=== PATIENT | male | born 1955 | race Two or more races ===

== ENCOUNTER 2017-05-03 11:37 | Emergency (ER) | payer OTHER ==
[~2017-05-03] VITALS: Ht 162.6 cm; Wt 77.1 kg
[2017-05-03 14:13] LABS: Basophils # (auto) 0 uL; Basophils % (auto) 0.4 % (0.0-2.0); CONDITION Y; Eosinophils # (auto) 0 uL; Hematocrit 41.8 % (41.0-53.0); Hemoglobin 14.2 g/dL (13.5-17.5); Lymphocytes # (auto) 1.5 uL; Lymphocytes % (auto) 23.3 % (10.0-50.0); Mean Corpuscular Hemoglobin 31.4 pg (28.0-32.0); Mean Corpuscular Hgb Conc. 33.9 g/dL (32.0-36.0); Mean Corpuscular Volume 92.8 fL (80.0-100.0); Monocytes # (auto) 0.5 uL; Monocytes % (auto) 7.5 % (0.0-12.0); Neutrophils # (auto) 4.4 uL; Neutrophils % (auto) 68.8 % (37.0-80.0); Platelet Count (auto) 270 10^3/uL (140-450); Red Cell Distribution Width 15.4 % (11.6-16.0); White Blood Cell 6.4 10^3/uL (4.4-10.8)
[2017-05-03 14:49] LABS: Albumin 4.1 g/dL (3.4-5.0); BUN/Creatinine Ratio 14.7; Bilirubin, Total 0.5 mg/dL (0.2-1.0); Calcium 9.2 mg/dL (8.5-10.1); Magnesium 2.4 mg/dL (1.6-2.6); Potassium 3.6 mmol/L (3.5-5.1); Total Protein 7.7 g/dL (6.4-8.2)
[2017-05-03] MEDS ORDERED: cloNIDine HCL 0.1 MG TAB PO ONE (19:15)
[2017-05-03 20:20] VITALS: BP 141/101
[2017-05-03 20:48] LABS: Urine Bilirubin Negative (Negative); Urine Blood Negative /uL (Negative); Urine Color Yellow (Yellow); Urine Glucose Normal (Normal); Urine Ketone 1+ (Negative); Urine Nitrite Negative (Negative); Urine RBC 1 /hpf (0 - 3); Urine Squamous Epithelial Cell FEW /hpf (<5); Urine Urobilinogen Normal (Negative); Urine pH 6.5 (5.0-8.0)
== END 2017-05-03 21:38 | disposition home or self-care (01) ==
LOC: ER 11:37
DX: F41.9 Anxiety disorder, unspecified (principal); F32.9 Major depressive disorder, single episode, unspecified
CPT/HCPCS: 36415; 80053; 81001; 83735; 84484; 85025; 93005

== ENCOUNTER 2018-02-05 12:46 | Emergency (ER) | payer OTHER ==
[~2018-02-05] VITALS: Ht 160 cm; Wt 66.2 kg
[2018-02-05 14:14] LABS: Basophils # (auto) 0 uL; Basophils % (auto) 0.2 % (0.0-2.0); Eosinophils # (auto) 0 uL; Hematocrit 38.4 % (41.0-53.0); Hemoglobin 12.9 g/dL (13.5-17.5); Lymphocytes # (auto) 1.3 uL; Lymphocytes % (auto) 30.6 % (10.0-50.0); Mean Corpuscular Hemoglobin 31.8 pg (28.0-32.0); Mean Corpuscular Hgb Conc. 33.6 g/dL (32.0-36.0); Mean Corpuscular Volume 94.6 fL (80.0-100.0); Monocytes # (auto) 0.4 uL; Monocytes % (auto) 10.4 % (0.0-12.0); Neutrophils # (auto) 2.5 uL; Neutrophils % (auto) 58.8 % (37.0-80.0); Nucleated Red Blood Cells % 0.1 %; Platelet Count (auto) 221 10^3/uL (140-450); Red Blood Cells 4.06 10^6/uL (4.5-5.90); Red Cell Distribution Width 13.8 % (11.8-14.3); White Blood Cell 4.2 10^3/uL (4.4-10.8)
[2018-02-05 14:30] LABS: Urine Bacteria FEW /hpf (None Seen); Urine Blood Negative /uL (Negative); Urine Mucus FEW (None Seen); Urine Specific Gravity 1.019 (1.001-1.035); Urine WBC 26 /hpf (0 - 3)
[2018-02-05 14:43] LABS: Albumin 3.8 g/dL (3.4-5.0); BUN/Creatinine Ratio 14.3; Bilirubin, Total 0.3 mg/dL (0.2-1.0); Calcium 8.7 mg/dL (8.5-10.1); Potassium 3.9 mmol/L (3.5-5.1); Total Protein 6.6 g/dL (6.4-8.2)
[2018-02-05 14:45] LABS: Amylase 69 U/L (25-115); Lipase 314 U/L (73-393)
[2018-02-05 15:58] VITALS: BP 163/91
== END 2018-02-05 16:13 | disposition home or self-care (01) ==
LOC: ER 12:46
DX: N39.0 Urinary tract infection, site not specified (principal); I10 Essential (primary) hypertension
CPT/HCPCS: 36415; 74176; 80053; 81001; 82150; 83690; 85025; 93005

== ENCOUNTER 2018-08-07 09:10 | Emergency (ER) | payer OTHER ==
[~2018-08-07] VITALS: Ht 160 cm; Wt 73.0 kg
[2018-08-07] MEDS ORDERED: LORazepam 2MG/ML-1ML VIAL IV ONE (09:30)
[2018-08-07] MEDS ORDERED: SODIUM CHLORIDE 0.9% 1,000 ML IV ONE (09:30)
[2018-08-07] MEDS ORDERED: ONDANSETRON HCL 4 MG/2 ML VIAL IV ONE (09:45)
[2018-08-07 10:31] LABS: Basophils # (auto) 0 uL; Basophils % (auto) 0.2 % (0.0-2.0); Eosinophils # (auto) 0 uL; Hematocrit 40.8 % (36.0-46.0); Lymphocytes # (auto) 0.5 uL; Lymphocytes % (auto) 7.5 % (10.0-50.0); Mean Corpuscular Hemoglobin 32.8 pg (28.0-32.0); Mean Corpuscular Hgb Conc. 34.4 g/dL (32.0-36.0); Mean Corpuscular Volume 95.4 fL (80.0-100.0); Monocytes # (auto) 0.4 uL; Monocytes % (auto) 5.9 % (0.0-12.0); Neutrophils % (auto) 86.4 % (37.0-80.0); Platelet Count (auto) 215 10^3/uL (140-450); Red Blood Cells 4.28 10^6/uL (4.0-5.20); Red Cell Distribution Width 13.2 % (11.8-14.3); White Blood Cell 6.9 10^3/uL (4.4-10.8)
[2018-08-07 10:48] LABS: Alanine Aminotransferase 32 U/L (13-56); Albumin 3.6 g/dL (3.4-5.0); Anion Gap 10 (5-15); Aspartate Aminotransferase 22 U/L (15-37); BUN/Creatinine Ratio 12.7; Blood Urea Nitrogen 10 mg/dL (7-18); Calcium 8.5 mg/dL (8.5-10.1); Carbon Dioxide 24 mmol/L (21-32); Chloride 109 mmol/L (98-107); GFR African American 95 mL/min; GFR Non-African American 79 mL/min; Glucose 130 mg/dL (74-106); Magnesium 1.8 mg/dL (1.6-2.6); Potassium 3.4 mmol/L (3.5-5.1); Sodium 143 mmol/L (136-145)
[2018-08-07 10:53] LABS: Alkaline Phosphatase 114 U/L (45-117); Bilirubin, Total 0.4 mg/dL (0.2-1.0); Total Protein 7.4 g/dL (6.4-8.2)
[2018-08-07] MEDS ORDERED: POTASSIUM EFFERVESENT TAB 25 MEQ PO ONE (12:00)
[2018-08-07] MEDS ORDERED: LABETALOL HCL 5 MG/ML ML 20ML VIAL IV ONE (12:15)
[2018-08-07 13:33] VITALS: BP 162/90
== END 2018-08-07 13:34 | disposition home or self-care (01) ==
LOC: EDSEX 09:10 → EDBD 09:10 → EDSEX 09:13 → ER 09:13
DX: F12.90 Cannabis use, unspecified, uncomplicated (principal); R11.2 Nausea with vomiting, unspecified
CPT/HCPCS: 36415; 71046; 74176; 80053; 83735; 84484; 85025; 96361; 96374; 96375; 99285; J2060; J2405; 93005

== ENCOUNTER 2022-04-16 11:16 | Emergency (ER) | payer MEDICARE, MEDICAID ==
[~2022-04-16] VITALS: Ht 162.6 cm; Wt 68.0 kg
[2022-04-16] MEDS ORDERED: HYDROcodone-ACET 10/325MG TAB PO ONE (11:45)
[2022-04-16] MEDS ORDERED: ONDANSETRON ODT 4 MG TAB PO ONE (11:45)
[2022-04-16] MEDS ORDERED: LORazepam 0.5 MG TAB PO ONE (11:45)
[2022-04-16] MEDS ORDERED: ONDANSETRON HCL 4 MG/2 ML VIAL ONE (12:46)
[2022-04-16] MEDS ORDERED: ONDANSETRON HCL 4 MG/2 ML VIAL IV ONE (13:00)
[2022-04-16 13:12] VITALS: BP 174/95
[2022-04-16] MEDS ORDERED: ONDA-144 PO (16:37)
== END 2022-04-16 17:25 | disposition home or self-care (01) ==
LOC: ER 11:16 → EDSEX 11:16 → EDBD 11:16 → ER 17:25
DX: F41.9 Anxiety disorder, unspecified (principal); G89.4 Chronic pain syndrome; I10 Essential (primary) hypertension; F32.9 Major depressive disorder, single episode, unspecified; Z76.0 Encounter for issue of repeat prescription
CPT/HCPCS: 96374; 99283; J2405

== ENCOUNTER → 2025-01-21 | Outpatient (CLI) | payer OTHER, MEDICAID ==
[~2025-01-21] MED LIST: ONDA-144 PO
== END | disposition home or self-care (01) ==
LOC: LAB 13:06
PROVIDERS: ATTEND Internal Medicine
DX: N39.0 Urinary tract infection, site not specified (principal)
CPT/HCPCS: 87086

== ENCOUNTER 2025-01-25 17:34 | Emergency (ER) | payer OTHER, MEDICAID ==
[~2025-01-25] VITALS: Ht 160 cm; Wt 77.1 kg
[2025-01-25 17:54] VITALS: BP 148/70; PULSE 83; RESP 18; TEMP 97.9; O2SAT 95
== END 2025-01-25 17:54 | disposition left against medical advice (07) ==
LOC: ER 17:38
DX: I10 Essential (primary) hypertension (principal); Z53.21 Procedure and treatment not carried out due to patient leaving prior to being seen by health care provider

== ENCOUNTER → 2025-01-30 | Outpatient (CLI) | payer OTHER, MEDICAID ==
[2025-01-30 12:16] LABS: Basophils # (auto) 0 10 ^3/uL (0-0.2); Basophils % (auto) 0.2 % (0.0-2.0); Eosinophils # (auto) 0 10 ^3/uL (0-0.8); Eosinophils % (auto) 0.1 % (0.0-7.0); Hematocrit 38.8 % (36.0-46.0); Hemoglobin 13.4 g/dL (12.2-16.2); Lymphocytes # (auto) 1.1 10 ^3/uL (0.4-5.4); Lymphocytes % (auto) 26.8 % (10.0-50.0); Mean Corpuscular Hemoglobin 32.5 pg (28.0-32.0); Mean Corpuscular Hgb Conc. 34.4 g/dL (32.0-36.0); Mean Corpuscular Volume 94.4 fL (80.0-100.0); Monocytes # (auto) 0.4 10 ^3/uL (0-1.3); Monocytes % (auto) 11.1 % (0.0-12.0); Neutrophils # (auto) 2.5 10 ^3/uL (1.6-8.6); Neutrophils % (auto) 61.8 % (37.0-80.0); Nucleated Red Blood Cells % 0.1 %; Platelet Count (auto) 206 10^3/uL (140-450); Red Blood Cells 4.11 10^6/uL (4.0-5.20); Red Cell Distribution Width 12.8 % (11.8-14.3); Urine Bacteria FEW /hpf (None Seen); Urine Blood Negative /uL (Negative); Urine Clarity Clear (Clear); Urine Color Light-Yellow (Yellow); Urine Mucus FEW (None Seen); Urine Protein, UAD Negative (Negative); Urine Specific Gravity 1.019 (1.001-1.035); Urine Squamous Epithelial Cell FEW /hpf (<5); Urine Urobilinogen Normal (Negative); Urine WBC 4 /HPF (0-5)
[2025-01-30 12:53] LABS: Albumin 4.7 g/dL (3.2-4.8); Alkaline Phosphatase 111 U/L (46-116); Anion Gap 6 (5-15); Aspartate Aminotransferase 15 U/L (13-40); BUN/Creatinine Ratio 14.8 (10.0-20.0); Blood Urea Nitrogen 12 mg/dL (9-23); Carbon Dioxide 28 mmol/L (20-31); Cholesterol 163 mg/dL (< 200); Glucose 105 mg/dL (74-106); HDL Cholesterol 56 mg/dL (40-59); LDL Cholesterol 95 mg/dL (< 100); Potassium 4.3 mmol/L (3.5-5.1); Sodium 141 mmol/L (136-145); Total Protein 7.2 g/dL (5.7-8.2); Triglycerides 83 mg/dL (< 150)
[2025-01-30 12:54] LABS: Bilirubin, Total 0.5 mg/dL (0.2-1.0)
[2025-01-30 12:56] LABS: Alanine Aminotransferase < 9 U/L (7-40); Chloride 107 mmol/L (98-107); Free T4 (Free Thyroxine) 1.23 ng/dL (0.89-1.76)
== END | disposition home or self-care (01) ==
LOC: LAB 11:38
PROVIDERS: ATTEND Internal Medicine
DX: I10 Essential (primary) hypertension (principal)
CPT/HCPCS: 36415; 80053; 80061; 81001; 82274; 82306; 82607; 83036; 84439; 84443; 85025; 87086

== ENCOUNTER → 2025-02-03 | Outpatient (CLI) | payer OTHER, MEDICAID ==
[2025-02-03 10:37] LABS: Urine Bacteria FEW /hpf (None Seen); Urine Blood Negative /uL (Negative); Urine Clarity Clear (Clear); Urine Color Light-Yellow (Yellow); Urine Protein, UAD Negative (Negative); Urine Specific Gravity 1.018 (1.001-1.035); Urine Squamous Epithelial Cell FEW /hpf (<5); Urine Urobilinogen Normal (Negative); Urine WBC < 1 /HPF (0-5)
== END | disposition home or self-care (01) ==
LOC: LAB 09:05
PROVIDERS: ATTEND Internal Medicine
DX: N39.0 Urinary tract infection, site not specified (principal)
CPT/HCPCS: 81001; 87086

== ENCOUNTER 2025-02-05 11:27 | Emergency (ER) | payer OTHER, MEDICAID ==
[~2025-02-05] VITALS: Ht 160 cm; Wt 75.2 kg
--- NOTE | 2025-02-05 11:49 | ED.PDOC ---
History of Present Illness HPI Comments 69-year-old female with PMHx HTN, Depression, Anxiety presents with a chief complaint of urinary frequency, nausea, and vomiting. Patient states that she has been having to go to the bathroom to urinate very often. Patient also mentions that she is having nausea with intermittent episodes of vomiting. Patient is not actively vomiting at this time. Patient endorses marijuana use, but stopped taking it x 1 week ago. No other symptoms or modifying factors present at this time. Chief Complaint: Nausea/Vomiting Time Seen by MD: 11:42 Primary Care Provider: NIKKI Salgado Notes: Medications, Allergies Allergies: Coded Allergies: No Known Drug Allergy (Verified Allergy, Unknown, 02/05/18) Home Meds Active Scripts Ondansetron (Zofran) 4 Mg Tab, 4 MG PO QID, #20 MG 0 Refills Prov:RIN LEÓN MD 04/16/22 Information Source: Patient Mode of Arrival: Ambulatory Severity: Moderate Timing: Days Duration: Since onset Prehospital treatment: None Past Medical History PAST MEDICAL HISTORY: Anxiety, Depression, HTN Surgical History: Appendectomy, , Hysterectomy Surgical History (Other): NECK, TMJ, Left FOOT 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 Family History Family History: Reviewed,noncontributory to illness Social History Smoker: Non-Smoker Alcohol: Denies ETOH Use Drugs: Marijuana Lives In: Home Constitutional: denies: chills, diaphoresis, fatigue, fever, malaise, sweats, weakness, others EENTM: denies: blurred vision, double vision, ear bleeding, ear discharge, ear drainage, ear pain, ear ringing, eye pain, eye redness, hearing loss, mouth pain, mouth swelling, nasal discharge, nose bleeding, nose congestion, nose pain, photophobia, tearing, throat pain, throat swelling, voice changes, others Respiratory: denies: cough, hemoptysis, orthopnea, SOB at rest, shortness of breath, SOB with excertion, stridor, wheezing, others Cardiovascular: denies: chest pain, dizzy spells, diaphoresis, Dyspnea on exertion, edema, irregular heart beat, left arm pain, lightheadedness, palpitations, PND, syncope, others Gastrointestinal: reports: nausea, vomiting; denies: abdomen distended, abdominal pain, blood streaked bowels, constipated, diarrhea, dysphagia, difficulty swallowing, hematemesis, melena, poor appetite, poor fluid intake, rectal bleeding, rectal pain, others Genitourinary: reports: frequency; denies: abnormal vagina bleeding, burning, dyspareunia, dysuria, flank pain, hematuria, incontinence, pain, , vagina discharge, urgency, others Neurological: denies: dizziness, fainting, headache, left sided numbness, left sided weakness, numbness, paresthesia, pre-existing deficit, right sided numbness, right sided weakness, seizure, speech problems, tingling, tremors, weakness, others Musculoskeletal: denies: back pain, gout, joint pain, joint swelling, muscle pain, muscle stiffness, neck pain, others Integumetry: denies: bruises, change in color, change in hair/nails, dryness, laceration, lesions, lumps, rash, wounds, others Allergic/Immunocompromised: denies: Difficulty Healing, Frequent Infections, Hives, Itching, others Hematologic/Lymphatic: denies: anemia, blood clots, easy bleeding, easy bruising, swollen glands, others Endocrine: denies: excessive hunger, excessive sweating, excessive thirst, excessive urination, flushing, intolerance to cold, intolerance to heat, unexplained weight gain, unexplained weight loss, others Psychiatric: denies: anxiety, bipolar disorder, depression, hopeless, panic disorder, schizophrenia, sleepless, suicidal, others All Other Systems: Reviewed and Negative Physical Exam General Appearance: Mild Distress HEENT: Normal ENT Inspection, Pharynx Normal, TMs Normal Neck: Full Range of Motion, Non-Tender, Normal, Normal Inspection Respiratory: Chest Non-Tender, Lungs Clear, No Accessory Muscle Use, No Respiratory Distress, Normal Breath Sounds Cardiovascular: No Edema, No JVD, No Murmur, No Gallop, Normal Peripheral Pulses, Regular Rate/Rhythm Breast Exam: Deferred Gastrointestinal: No Organomegaly, Non Tender, No Pulsatile Mass, Normal Bowel Sounds, Soft Genitalia: Deferred Pelvic: Deferred Rectal: Deferred Extremities: No calf tenderness, Normal capillary refill, Normal inspection, Normal range of motion, Non-tender, No pedal edema Musculoskeletal : Apperance: Normal Neurologic: Alert, court registry officer II-XII nml as Tested, No Motor Deficits, Normal Affect, Normal Mood, No Sensory Deficits Cerebellar Function: Normal Reflexes: Normal Skin: Dry, Normal Color, Warm Lymphatic: No Adenopathy Was a procedure done? Was a procedure done?: No Differential Dx Considerations may include: Cannabinoid emesis, electrolyte imbalance, UTI X-Ray, Labs, Meds, VS Vital Signs Date Time Temp Pulse Resp B/P (MAP) Pulse Ox O2 Delivery O2 Flow Rate FiO2 02/05/25 12:42 97.6 72 18 140/74 (96) 96 97.6 02/05/25 12:42 72 18 96 Room Air* 0 21 02/05/25 11:37 99.3 82 18 155/79 (104) 96 99.3 Lab Test 02/05/25 12:50 Range/Units White Blood Count 4.9 4.4-10.8 10^3/uL Red Blood Count 4.34 4.0-5.20 10^6/uL Hemoglobin 14.0 12.2-16.2 g/dL Hematocrit 41.1 36.0-46.0 % Mean Corpuscular Volume 94.6 80.0-100.0 fL Mean Corpuscular Hemoglobin 32.3 H 28.0-32.0 pg Mean Corpuscular Hemoglobin Concent 34.1 32.0-36.0 g/dL Red Cell Distribution Width 13.4 11.8-14.3 % Platelet Count 230 140-450 10^3/uL Mean Platelet Volume 10.3 6.9-10.8 fL Neutrophils (%) (Auto) 58.4 37.0-80.0 % Lymphocytes (%) (Auto) 28.9 10.0-50.0 % Monocytes (%) (Auto) 12.2 H 0.0-12.0 % Eosinophils (%) (Auto) 0.1 0.0-7.0 % Basophils (%) (Auto) 0.4 0.0-2.0 % Neutrophils # (Auto) 2.9 1.6-8.6 10 ^3/uL Lymphocytes # (Auto) 1.4 0.4-5.4 10 ^3/uL Monocytes # (Auto) 0.6 0-1.3 10 ^3/uL Eosinophils # (Auto) 0 0-0.8 10 ^3/uL Basophils # (Auto) 0 0-0.2 10 ^3/uL Nucleated Red Blood Cells 0.1 % Sodium Level 140 136-145 mmol/L Potassium Level 3.9 3.5-5.1 mmol/L Chloride Level 108 H 98-107 mmol/L Carbon Dioxide Level 27 20-31 mmol/L Anion Gap 5 5-15 Blood Urea Nitrogen 12 9-23 mg/dL Creatinine 0.73 0.550-1.02 mg/dL Glomerular Filtration Rate Calc 90 >90 mL/min BUN/Creatinine Ratio 16.4 10.0-20.0 Serum Glucose 98 74-106 mg/dL Calcium Level 10.0 8.7-10.4 mg/dL Total Bilirubin 0.5 0.2-1.0 mg/dL Aspartate Amino Transferase (AST) 17 13-40 U/L Alanine Aminotransferase (ALT) 15 7-40 U/L Alkaline Phosphatase 107 46-116 U/L Total Protein 7.7 5.7-8.2 g/dL Albumin 5.0 H 3.2-4.8 g/dL Gallbladder US Impression: No evidence of acute abnormality. The patient's CBC is within normal limits The chemistry panel is within normal limits The patient was being discharged and will follow up with the primary care doctor The patient will return to the emergency department's the condition worsens. The patient was given Zofran and Protonix Time of 1ST Reevaluation: 12:12 Reevaluation 1ST: Unchanged Patient Education/Counseling: Diagnosis, Treatment, Prognosis, Need For Follow Up Family Education/Counseling: No Family Present Departure 1 Departure Time of Disposition: 14:17 Impression: Primary Impression: Vomiting Qualified Codes: R11.14 - Bilious vomiting Additional Impression: Cannabinoid hyperemesis syndrome Disposition: 01 HOME / SELF CARE / HOMELESS Condition: Fair Discharged With: Self Critical Care Note Critical Care Time?: No Stability Stability form required: No Heart Score Heart Score: Heart Score Response (Comments) Value History N/A 0 EKG N/A 0 Age N/A 0 Risk Factors N/A 0 Troponin N/A 0 Total 0 I personally scribed for CARLOS ALBERTO JUAREZ MD ([email or web address]) on 02/05/25 at 11:49. Electronically submitted by Momo Amezquita ([email or web address]). I personally scribed for CARLOS ALBERTO JUAREZ MD ([email or web address]) on 02/05/25 at 13:22. Electronically submitted by Momo Amezquita ([email or web address]). CARLOS ALBERTO JUAREZ MD Feb 05, 2025 11:49
[2025-02-05 12:42] VITALS: PULSE 72; RESP 18; O2SAT 96
--- NOTE | 2025-02-05 12:49 | DVH ---
EXAM: US GALLBLADDER INDICATION: pain TECHNIQUE: Multiple real-time sonographic images were obtained of the right upper quadrant. COMPARISON: None FINDINGS: The liver demonstrates homogenous echotexture without focal mass lesions. The liver measure s 15.1 cm. There is hepatopedal color doppler flow in the main portal vein. There is no intrahepatic biliary ductal dilatation. The gallbladder is without evidence of stone or sludge. The gallbladder wall measures 0.2 cm. The common bile duct measures 0.4 cm. There is a negative sonographic Clark's sign. The right kidney measures 9.8 cm. The right kidney is normal in contour, size, and shape. The echo genicity is normal. There is no hydronephrosis. The pancreas is not well visualized due to overlying bowel gas. Visualized portions of the aorta and inferior vena cava are unremarkable. No evidence of ascites. IMPRESSION: 1. No evidence of acute abnormality. HS:Y
[2025-02-05 13:25] LABS: Basophils # (auto) 0 10 ^3/uL (0-0.2); Basophils % (auto) 0.4 % (0.0-2.0); Eosinophils # (auto) 0 10 ^3/uL (0-0.8); Eosinophils % (auto) 0.1 % (0.0-7.0); Hematocrit 41.1 % (36.0-46.0); Lymphocytes # (auto) 1.4 10 ^3/uL (0.4-5.4); Lymphocytes % (auto) 28.9 % (10.0-50.0); Mean Corpuscular Hemoglobin 32.3 pg (28.0-32.0); Mean Corpuscular Hgb Conc. 34.1 g/dL (32.0-36.0); Mean Corpuscular Volume 94.6 fL (80.0-100.0); Monocytes # (auto) 0.6 10 ^3/uL (0-1.3); Monocytes % (auto) 12.2 % (0.0-12.0); Neutrophils # (auto) 2.9 10 ^3/uL (1.6-8.6); Neutrophils % (auto) 58.4 % (37.0-80.0); Nucleated Red Blood Cells % 0.1 %; Platelet Count (auto) 230 10^3/uL (140-450); Red Blood Cells 4.34 10^6/uL (4.0-5.20); Red Cell Distribution Width 13.4 % (11.8-14.3); White Blood Cell 4.9 10^3/uL (4.4-10.8)
[2025-02-05 13:31] LABS: Alanine Aminotransferase 15 U/L (7-40); Alkaline Phosphatase 107 U/L (46-116); Anion Gap 5 (5-15); Aspartate Aminotransferase 17 U/L (13-40); BUN/Creatinine Ratio 16.4 (10.0-20.0); Bilirubin, Total 0.5 mg/dL (0.2-1.0); Blood Urea Nitrogen 12 mg/dL (9-23); Carbon Dioxide 27 mmol/L (20-31); Glucose 98 mg/dL (74-106); Potassium 3.9 mmol/L (3.5-5.1); Sodium 140 mmol/L (136-145); Total Protein 7.7 g/dL (5.7-8.2)
[2025-02-05 13:36] LABS: Chloride 108 mmol/L (98-107)
[2025-02-05] MEDS ORDERED: ZOFR4T PO (14:19)
[2025-02-05] MEDS ORDERED: PANT40TA2 PO (14:19)
[2025-02-05 14:29] VITALS: BP 149/86; PULSE 83; RESP 16; TEMP 98.7; O2SAT 95
== END 2025-02-05 14:39 | disposition home or self-care (01) ==
LOC: ER 11:31
DX: R11.2 Nausea with vomiting, unspecified (principal); F12.90 Cannabis use, unspecified, uncomplicated; I10 Essential (primary) hypertension; F41.9 Anxiety disorder, unspecified; F32.9 Major depressive disorder, single episode, unspecified; Z90.710 Acquired absence of both cervix and uterus; Z90.49 Acquired absence of other specified parts of digestive tract
CPT/HCPCS: 36415; 76705; 80053; 85025

== ENCOUNTER 2025-03-18 12:46 | Emergency (ER) | payer OTHER, MEDICAID ==
[~2025-03-18] VITALS: Ht 160 cm; Wt 71.7 kg
[~2025-03-18 12:46] MED LIST changes: +PANT40TA2 PO; +ZOFR4T PO
[2025-03-18 13:48] LABS: Urine Bacteria FEW /hpf (None Seen); Urine Blood 3+ /uL (Negative); Urine Budding Yeast MODERATE /hpf (None Seen); Urine Clarity Ex.Turbid (Clear); Urine Color Light-Brown (Yellow); Urine Mucus FEW (None Seen); Urine Protein, UAD 1+ (Negative); Urine Specific Gravity 1.014 (1.001-1.035); Urine Squamous Epithelial Cell FEW /hpf (<5); Urine Urobilinogen Normal (Negative); Urine WBC 3317 /HPF (0-5)
[2025-03-18] MEDS ORDERED: PHEN-1045 PO (14:45)
[2025-03-18] MEDS ORDERED: CEPH500T PO (14:45)
--- NOTE | 2025-03-18 14:47 | ED.PDOC ---
General HPI Comments 69 y/o F presents with 2 day history of dysuria and increased urinary urgency and frequency with hematuria onset today. She reports on history of previous multiple bladder infections in the past and is currently followed by Dr. Bipin Ortiz for frequent UTIs, and has been recommended for cystoscopy. She denies having any flank or abdominal pain, nausea, vomiting, fever, chills, or other associated symptoms. Reports no modifying factors. Chief Complaint: Urinary Time Seen by MD: 14:20 Primary Care Provider: MARIA VICTORIA Salgado notes: Nurses Notes, Medications, Allergies Allergies: Coded Allergies: No Known Drug Allergy (Verified Allergy, Unknown, 02/05/18) Home Meds Active Scripts Phenazopyridine HCl (Phenazopyridine Hydrochol) 200 Mg Tab, 200 MG PO TID PRN, #9 TAB prn urinary pain Prov:HENRY GARCIA MD 03/18/25 Cephalexin Monohydrate (Cephalexin) 500 Mg Tab, 1 TAB PO QID for 10 Days, #40 TAB Prov:HENRY GARCIA MD 03/18/25 Pantoprazole Sodium Sesquihydr (Protonix) 40 Mg Tab, 40 MG PO DAILY, #30 TAB Prov:CARLOS ALBERTO JUAREZ MD 02/05/25 Ondansetron Odt 4MG Tab (ZOFRAN PO) 4 Mg Tb, 4 MG PO Q8HP PRN for 5 Days, #15 TAB ODT TAB-DISSOLVE IN MOUTH, THEN SWALLOW Prov:CARLOS ALBERTO UJAREZ MD 02/05/25 Ondansetron (Zofran) 4 Mg Tab, 4 MG PO QID, #20 MG 0 Refills Prov:RIN LEÓN MD 04/16/22 Information Source: Patient Mode of Arrival: Ambulatory Severity: Moderate Timing: Days Past Medical History PAST MEDICAL HISTORY: Anxiety, Depression, HTN Past Medical History (Other): bladder infections Surgical History: Appendectomy, , Hysterectomy Surgical History (Other): left foot, right hand carpal tunnel, TMJ, and neck surgery 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 Moist mucous membranes.) Neck: Full Range of Motion, Normal Inspection Respiratory: Lungs Clear, No Accessory Muscle Use, No Respiratory Distress, Normal Breath Sounds Cardiovascular: No Edema, No JVD, Regular Rate/Rhythm Breast Exam: Deferred Gastrointestinal: Soft, Suprapubic, Tenderness Genitalia: Deferred Pelvic: Deferred Rectal: Deferred Extremities: Normal inspection, Normal range of motion, Non-tender, No pedal edema Neurologic: Alert (Oriented x4), Normal Affect, Normal Mood, Other (Ambulatory) Cerebellar Function: NOT DONE Reflexes: NOT DONE Skin: Dry, Normal Color, Warm Lymphatic: NOT DONE Was a procedure done? Was a procedure done?: No Differential Diagnosis Kidney stone (Female): N/A Urinary Problem (Female): Pyelonephritis, Urolithiasis, UTI, Other (viral syndrome) X-Ray, Labs, Meds, VS Vital Signs Date Time Temp Pulse Resp B/P (MAP) Pulse Ox O2 Delivery O2 Flow Rate FiO2 03/18/25 15:35 98.3 82 20 132/82 (99) 94 98.3 03/18/25 13:19 98.3 82 20 130/79 (96) 94 98.3 Lab Test 03/18/25 13:19 Range/Units Urine Color Light-brown Yellow Urine Clarity Ex.turbid Clear Urine pH 6.0 5.0-9.0 Urine Specific [place] 1.014 1.001-1.035 Urine Protein 1+ H Negative Urine Ketones Negative Negative Urine Blood 3+ H Negative /uL Urine Nitrite Negative Negative Urine Bilirubin Negative Negative Urine Urobilinogen Normal Negative mg/dL Urine Leukocyte Esterase 3+ Negative /uL Urine RBC 677 0 - 4 /hpf Urine Microscopic WBC 3317 H 0-5 /HPF Urine Squamous Epithelial Cells Few <5 /hpf Urine Bacteria Few H None Seen /hpf Urine Mucus Few None Seen Urine Yeast (Budding) Moderate None Seen /hpf Urine Glucose Normal Normal mg/dL Current Medications Medications (Trade) Dose Ordered Sig/Yandel Route Start Time Stop Time Status Last Admin Ceftriaxone Sodium/Dextrose 50 ml @ 50 mls/hr ONCE ONCE IV 03/18/25 14:45 03/18/25 15:44 DC 03/18/25 15:51 Phenazopyridine HCl (Pyridium Tablet) 200 mg ONCE ONCE PO 03/18/25 14:45 03/18/25 14:56 DC 03/18/25 15:51 Acetaminophen (Tylenol Tablet Or Capsule) 1,000 mg ONCE ONCE PO 03/18/25 14:45 03/18/25 14:56 DC 03/18/25 15:51 X-Ray, Labs, Meds, VS Comment 69-year-old female with a history of hypertension, depression, anxiety and frequent UTIs complaining of urinary frequency, dysuria and hematuria Vitals remarkable for oxygen saturation 94% on room air Exam remarkable for mild suprapubic tenderness to palpation Rhythm strip independently interpreted by me: Sinus rhythm, rate 82, no ectopy. UA under for blood, protein, leukocyte esterase, RBCs, WBCs and bacteria consistent with UTI Patient treated with the following in the ED: Rocephin 2 g IV, Pyridium 200 mg p.o., Tylenol 1 g p.o. On re-evaluation, patient states her pain has improved. Vitals were stable. Patient appears stable for discharge with close outpatient follow-up with her primary physician. Patient also advised to follow-up with Dr. Ortiz as soon as possible. Time of 1ST Reevaluation: 14:50 Reevaluation 1ST: Unchanged Time of 2ND Reevaluation: 15:55 Reevaluation 2ND: Improved Patient Education/Counseling: Diagnosis, Treatment, Need For Follow Up Family Education/Counseling: No Family Present Departure 1 Departure Time of Disposition: 15:55 Impression: Primary Impression: UTI (urinary tract infection) Qualified Codes: N39.0 - Urinary tract infection, site not specified; R31.9 - Hematuria, unspecified Disposition: 01 HOME / SELF CARE / HOMELESS Condition: Stable Additional Instructions: Follow-up with your primary doctor in 1-2 days. Follow-up with Dr. Ortiz as soon as possible. e-Prescriptions Phenazopyridine HCl (Phenazopyridine Hydrochol) 200 Mg Tab 200 MG PO TID PRN, #9 TAB prn urinary pain Prov: HENRY GARCIA MD 03/18/25 Cephalexin Monohydrate (Cephalexin) 500 Mg Tab 1 TAB PO QID for 10 Days, #40 TAB Prov: HENRY GARCIA MD 03/18/25 Discharged With: Self Critical Care Note Critical Care Time?: No Stability Stability form required: No Heart Score Heart Score: Heart Score Response (Comments) Value History N/A 0 EKG N/A 0 Age N/A 0 Risk Factors N/A 0 Troponin N/A 0 Total 0 I personally scribed for HENRY GARCIA MD ([email or web address]) on 03/18/25 at 14:47. Electronically submitted by Ignacio Fuller ([email or web address]). I personally scribed for HENRY GARCIA MD ([email or web address]) on 03/18/25 at 14:48. Electronically submitted by Ignacio Fuller ([email or web address]). I personally scribed for HENRY GARCIA MD ([email or web address]) on 03/18/25 at 15:57. Electronically submitted by Ignacio Fuller ([email or web address]). HENRY GARCIA MD March 18, 2025 14:47
[2025-03-18 15:35] VITALS: BP 132/82; PULSE 82; RESP 20; TEMP 98.3; O2SAT 94
[2025-03-18] MEDS: ACETAMINOPHEN 500 MG TAB or CAP PO ONE (15:51)
[2025-03-18] MEDS: PHENAZOPYRIDINE HCL 100 MG TAB PO ONE (15:51)
[2025-03-18] MEDS: cefTRIAXone 2GM/50ML D5W 50 ML IV ONE (15:51)
== END 2025-03-18 16:30 | disposition home or self-care (01) ==
LOC: ER 12:49
DX: N39.0 Urinary tract infection, site not specified (principal); I10 Essential (primary) hypertension; F41.9 Anxiety disorder, unspecified; F32.A Depression, unspecified; F12.90 Cannabis use, unspecified, uncomplicated; Z90.49 Acquired absence of other specified parts of digestive tract; Z90.710 Acquired absence of both cervix and uterus; Z79.899 Other long term (current) drug therapy; Z98.890 Other specified postprocedural states
CPT/HCPCS: 81001; 96365; 99284; J0696

== ENCOUNTER 2025-07-31 10:54 | Outpatient (CLI) | payer OTHER, MEDICAID ==
[~2025-07-31 10:54] MED LIST changes: +CEPH500T PO; +PHEN-1045 PO
[2025-07-31 11:10] LABS: Hematocrit 41.2 % (36.0-46.0); Hemoglobin 14.4 g/dL (12.2-16.2); Mean Corpuscular Hemoglobin 32.4 pg (28.0-32.0); Mean Corpuscular Volume 93.0 fL (80.0-100.0); Nucleated Red Blood Cells % 0.1 %
[2025-07-31 11:24] LABS: Urine Protein, UAD Negative (Negative)
[2025-07-31 11:34] LABS: Alanine Aminotransferase 18 U/L (7-40); Albumin 4.5 g/dL (3.2-4.8); Alkaline Phosphatase 99 U/L (46-116); Anion Gap 8 (5-15); BUN/Creatinine Ratio 14.6 (10.0-20.0); Bilirubin, Total 0.4 mg/dL (0.2-1.0); Blood Urea Nitrogen 13 mg/dL (9-23); Calcium 9.4 mg/dL (8.7-10.4); Carbon Dioxide 29 mmol/L (20-31); Chloride 106 mmol/L (98-107); Cholesterol 198 mg/dL (< 200); Glucose 105 mg/dL (74-106); Potassium 3.9 mmol/L (3.5-5.1); Sodium 143 mmol/L (136-145); Total Protein 7.5 g/dL (5.7-8.2); Triglycerides 107 mg/dL (< 150)
[2025-07-31 11:35] LABS: HDL Cholesterol 77 mg/dL (40-59)
== END 2025-07-31 17:00 | disposition home or self-care (01) ==
LOC: LAB 10:54
PROVIDERS: ATTEND Internal Medicine
DX: I12.9 Hypertensive chronic kidney disease with stage 1 through stage 4 chronic kidney disease, or unspecified chronic kidney disease (principal); N18.32 Chronic kidney disease, stage 3b; E78.5 Hyperlipidemia, unspecified; N39.0 Urinary tract infection, site not specified; Z13.1 Encounter for screening for diabetes mellitus; Z00.01 Encounter for general adult medical examination with abnormal findings
CPT/HCPCS: 36415; 80053; 80061; 81001; 83036; 84439; 84443; 85025

== ENCOUNTER → 2025-08-20 | Outpatient (CLI) | payer OTHER, MEDICAID | END | disposition home or self-care (01) | LOC: LAB 09:53 | PROVIDERS: ATTEND Internal Medicine | DX: N39.0 Urinary tract infection, site not specified (principal); E55.9 Vitamin D deficiency, unspecified | CPT/HCPCS: 82306; 87086 ==

== ENCOUNTER 2025-08-26 14:20 | Inpatient (IN) | payer OTHER, MEDICAID ==
[~2025-08-26] VITALS: Ht 162.6 cm
--- NOTE | 2025-08-26 14:58 | ED.PDOC ---
GI ASSESSMENT HPI Comments This is a 69 year old female presenting to the ED with chief complaint of difficulty swallowing. Patient reports that she has been experiencing intermittent episodes of difficulty swallowing foods and liquids for the past few months, but now she has been unable to eat any foods since yesterday due to feeling as if it is stuck in her throat. Patient relays that she followed up with her PCP Dr. Roca regarding this concern and was referred to GI, however, she went on a trip to [place] and could not make her appointment. Patient states she now has associated epigastric burning pain due to the food stuck in her throat. Patient denies any N/V/D, fever, chills, choking, dizziness, or hematemesis. Chief Complaint: Sore Throat Time Seen by MD: 14:55 Primary Care Provider: MARIA VICTORIA Reviewed Notes: Nurses Notes, Medications, Allergies Allergies: Coded Allergies: No Known Drug Allergy (Verified Allergy, Unknown, 02/05/18) Home Meds Active Scripts Phenazopyridine HCl (Phenazopyridine Hydrochol) 200 Mg Tab, 200 MG PO TID PRN, #9 TAB prn urinary pain Prov:HENRY GARCIA MD 03/18/25 Cephalexin Monohydrate (Cephalexin) 500 Mg Tab, 1 TAB PO QID for 10 Days, #40 TAB Prov:HENRY GARCIA MD 03/18/25 Pantoprazole Sodium Sesquihydr (Protonix) 40 Mg Tab, 40 MG PO DAILY, #30 TAB Prov:CARLOS ALBERTO JUAREZ MD 02/05/25 Ondansetron Odt 4MG Tab (ZOFRAN PO) 4 Mg Tb, 4 MG PO Q8HP PRN for 5 Days, #15 TAB ODT TAB-DISSOLVE IN MOUTH, THEN SWALLOW Prov:CARLOS ALBERTO JUAREZ MD 02/05/25 Ondansetron (Zofran) 4 Mg Tab, 4 MG PO QID, #20 MG 0 Refills Prov:RIN LEÓN MD 04/16/22 Information Source: Patient Mode of Arrival: Ambulatory Timing: Days, Months Duration: Since onset Prehospital treatment: None Quality: Burning Vomitus: None Stool: Normal Severity: Moderate Recent: None Recent Hx of: None Pain Location: Epigastric Modifying Factors: Food Associated sign and symptoms: Abdominal Pain Past Medical History PAST MEDICAL HISTORY: Anxiety, Depression, HTN Surgical History: Appendectomy, , Hysterectomy 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 Family History Family History: Reviewed,noncontributory to illness Social History Smoker: Non-Smoker Alcohol: Denies ETOH Use Drugs: Denies Drug Use Lives In: Home Constitutional: denies: chills, diaphoresis, fatigue, fever, malaise, sweats, weakness, others EENTM: reports: others (Difficulty swallowing); denies: blurred vision, double vision, ear bleeding, ear discharge, ear drainage, ear pain, ear ringing, eye pain, eye redness, hearing loss, mouth pain, mouth swelling, nasal discharge, nose bleeding, nose congestion, nose pain, photophobia, tearing, throat pain, throat swelling, voice changes Respiratory: denies: cough, hemoptysis, orthopnea, SOB at rest, shortness of breath, SOB with excertion, stridor, wheezing, others Cardiovascular: denies: chest pain, dizzy spells, diaphoresis, Dyspnea on exertion, edema, irregular heart beat, left arm pain, lightheadedness, palpi tations, PND, syncope, others Gastrointestinal: reports: abdominal pain; denies: abdomen distended, blood streaked bowels, constipated, diarrhea, dysphagia, difficulty swallowing, hematemesis, melena, nausea, poor appetite, poor fluid intake, rectal bleeding, rectal pain, vomiting, others Genitourinary: denies: abnormal vagina bleeding, burning, dyspareunia, dysuria, flank pain, frequency, hematuria, incontinence, pain, , vagina discha rge, urgency, others Neurological: denies: dizziness, fainting, headache, left sided numbness, left sided weakness, numbness, paresthesia, pre-existing deficit, right sided numbness, right sided weakness, seizure, speech problems, tingling, tremors, weakness, others Musculoskeletal: denies: back pain, gout, joint pain, joint swelling, muscle pain, muscle stiffness, neck pain, others Integumetry: denies: bruises, change in color, change in hair/nails, dryness, laceration, lesions, lumps, rash, wounds, others Allergic/Immunocompromised: denies: Difficulty Healing, Frequent Infections, Hives, Itching, others Hematologic/Lymphatic: denies: anemia, blood clots, easy bleeding, easy bruising, swollen glands, others Endocrine: denies: excessive hunger, excessive sweating, excessive thirst, excessive urination, flushing, intolerance to cold, intolerance to heat, unexplained weight gain, unexplained weight loss, others Psychiatric: denies: anxiety, bipolar disorder, depression, hopeless, panic disorder, schizophrenia, sleepless, suicidal, others All Other Systems: Reviewed and Negative Physical Exam General Appearance: Mild Distress HEENT: Normal ENT Inspection, Pharynx Normal, TMs Normal Neck: Full Range of Motion, Non-Tender, Normal, Normal Inspection Respiratory: Chest Non-Tender, Lungs Clear, No Accessory Muscle Use, No Respiratory Distress, Normal Breath Sounds Cardiovascular: No Edema, No JVD, No Murmur, No Gallop, Normal Peripheral Pulses, Regular Rate/Rhythm Breast Exam: Deferred Gastrointestinal: No Organomegaly, Non Tender, No Pulsatile Mass, Normal Bowel Sounds, Soft Genitalia: Deferred Pelvic: Deferred Rectal: Deferred Extremities: No calf tenderness, Normal capillary refill, Normal inspection, Normal range of motion, Non-tender, No pedal edema Musculoskeletal : Apperance: Normal Neurologic: Alert, iso coordinator II-XII nml as Tested, No Motor Deficits, Normal Affect, Normal Mood, No Sensory Deficits Cerebellar Function: Normal Reflexes: Normal Skin: Dry, Normal Color, Warm Lymphatic: No Adenopathy Was a procedure done? Was a procedure done?: No GI differential Dx Differential Diagnosis: Gastritis/PUD, Gastroenteritis, Other (Esophageal stricture, esophageal foreign body) X-Ray, Labs, Meds, VS Vital Signs Date Time Temp Pulse Resp B/P (MAP) Pulse Ox O2 Delivery O2 Flow Rate FiO2 08/26/25 14:25 98.7 90 16 154/84 [address] Redmond and the patient is being admitted at this time. An IV Hep-Lock is being established. The patient is being admitted and will have an EGD most likely tomorrow The patient is unable to swallow any food at this time Time of 1ST Reevaluation: 16:25 Reevaluation 1ST: Unchanged Patient Education/Counseling: Diagnosis, Treatment, Prognosis Family Education/Counseling: No Family Present SEPSIS Sepsis Screen Date sepsis recognized/suspect: Aug 26, 2025 Time Sepsis recognized/suspect: 1428 Recent Procedure: No On Antibiotic Therapy: No Respiratory Rate >20: No Heart Rate >90: No Temp<36 C (96.8 F) or >38.3 C: No SBP <90 or MAP <65 mmHG: No New Acute Mental Status Change: No Is the patient on CPAP, BIPAP,: No Vital Signs Date Time Temp Pulse Resp B/P (MAP) Pulse Ox O2 Delivery O2 Flow Rate FiO2 08/26/25 14:25 98.7 90 16 154/84 96 98.7 Departure 1 Departure Time of Disposition: 16:24 Impression: Primary Impression: Esophageal stricture Disposition: ADMITTED INPATIENT Admit to: Med Surg Condition: Fair Critical Care Note Critical Care Time?: No Stability Stability form required: Yes Unstable for transfer: ED Physician Assesment (Clinical assesment) Heart Score Heart Score: Heart Score Response (Comments) Value History N/A 0 EKG N/A 0 Age N/A 0 Risk Factors N/A 0 Troponin N/A 0 Total 0 I personally scribed for CARLOS ALBERTO JUAREZ MD ([email or web address]) on 08/26/25 at 14:58. Electronically submitted by Ray Vargas ([email or web address]). CARLOS ALBERTO JUAREZ MD Aug 26, 2025 14:58
[2025-08-26 17:32] LABS: Hematocrit 41.4 % (36.0-46.0); Hemoglobin 14.3 g/dL (12.2-16.2); Mean Corpuscular Hemoglobin 32.3 pg (28.0-32.0); Mean Corpuscular Volume 93.5 fL (80.0-100.0); Nucleated Red Blood Cells % 0.1 %
[2025-08-26 17:46] LABS: Chloride 103 mmol/L (98-107); Potassium 3.7 mmol/L (3.5-5.1); Sodium 140 mmol/L (136-145)
[2025-08-26 17:47] LABS: Anion Gap 10 (5-15); Carbon Dioxide 27 mmol/L (20-31)
[2025-08-26 17:48] LABS: Calcium 9.7 mg/dL (8.7-10.4); INR 0.99 (0.9-1.15); Partial Thromboplastin Time 28.7 SEC (24.5-34.5); Prothrombin Time 10.5 sec (9.3-11.8)
[2025-08-26 17:52] LABS: BUN/Creatinine Ratio 9.0 (10.0-20.0); Blood Urea Nitrogen 10 mg/dL (9-23); Glucose 97 mg/dL (74-106)
--- NOTE | 2025-08-26 21:02 | DVHINCON2 ---
Date of service: Aug 26, [address] Jason Reason for Consultation Oropharyngeal dysphagia History of Present Illness This is a 69 year old female presenting to the ED with chief complaint of difficulty swallowing. Patient reports that she has been experiencing intermittent episodes of difficulty swallowing foods and liquids for the past few months, but now she has been unable to eat any foods since yesterday due to feeling as if it is stuck in her throat. Patient relays that she followed up with her PCP Dr. Roca regarding this concern and was referred to GI, however, she went on a trip to [place] and could not make her appointment. Patient states she now has associated epigastric burning pain due to the food stuck in her throat. Patient denies any N/V/D, fever, chills, choking, dizziness, or hematemesis. Patient was seen in [facility]. Patient complains of ongoing symptoms and would like to get endoscopy done. Patient was able to drink liquids and she did get a cup of coffee while in the waiting room. She has not had any prior endoscopy. And Zofrjohn as an outpatient which has not helped her symptoms Past Medical History PAST MEDICAL HISTORY: Anxiety, Depression, HTN Past Surgical History Surgical History: Appendectomy, , Hysterectomy Allergies: Coded Allergies: No Known Drug Allergy (Verified Allergy, Unknown, 02/05/18) Home Meds Active Scripts Phenazopyridine HCl (Phenazopyridine Hydrochol) 200 Mg Tab, 200 MG PO TID PRN, #9 TAB prn urinary pain Prov:HENRY GARCIA MD 03/18/25 Cephalexin Monohydrate (Cephalexin) 500 Mg Tab, 1 TAB PO QID for 10 Days, #40 TAB Prov:HENRY GARCIA MD 03/18/25 Pantoprazole Sodium Sesquihydr (Protonix) 40 Mg Tab, 40 MG PO DAILY, #30 TAB Prov:CARLOS ALBERTO JASON MD 02/05/25 Ondansetron Odt 4MG Tab (ZOFRAN PO) 4 Mg Tb, 4 MG PO Q8HP PRN for 5 Days, #15 TAB ODT TAB-DISSOLVE IN MOUTH, THEN SWALLOW Prov:CARLOS ALBERTO JASON MD 02/05/25 Ondansetron (Zofran) 4 Mg Tab, 4 MG PO QID, #20 MG 0 Refills Prov:RIN LEÓN MD 04/16/22 Vital Signs Vital Signs Date Time Temp Pulse Resp B/P (MAP) Pulse Ox O2 Delivery O2 Flow Rate FiO2 08/26/25 14:25 98.7 90 16 154/84 96 98.7 Physical Exam Well-developed well-nourished lady no acute distress ambulatory Pupils equal and react to light, extraocular movements intact Lungs are clear, S1-S2 regular rate rhythm Abdomen is soft nontender nondistended Extremities without clubbing cyanosis or edema Neuro she is alert oriented x3 with no focal deficit Labs/Diagnostic Data Labs Test 08/26/25 17:16 Range/Units White Blood Count 6.1 4.4-10.8 10^3/uL Red Blood Count 4.43 4.0-5.20 10^6/uL Hemoglobin 14.3 12.2-16.2 g/dL Hematocrit 41.4 36.0-46.0 % Mean Corpuscular Volume 93.5 80.0-100.0 fL Mean Corpuscular Hemoglobin 32.3 H 28.0-32.0 pg Mean Corpuscular Hemoglobin Concent 34.6 32.0-36.0 g/dL Red Cell Distribution Width 13.9 11.8-14.3 % Platelet Count 290 140-450 10^3/uL Mean Platelet Volume 8.9 6.9-10.8 fL Neutrophils (%) (Auto) 67.7 37.0-80.0 % Lymphocytes (%) (Auto) 22.3 10.0-50.0 % Monocytes (%) (Auto) 9.7 0.0-12.0 % Eosinophils (%) (Auto) 0.2 0.0-7.0 % Basophils (%) (Auto) 0.1 0.0-2.0 % Neutrophils # (Auto) 4.1 1.6-8.6 10 ^3/uL Lymphocytes # (Auto) 1.4 0.4-5.4 10 ^3/uL Monocytes # (Auto) 0.6 0-1.3 10 ^3/uL Eosinophils # (Auto) 0 0-0.8 10 ^3/uL Basophils # (Auto) 0 0-0.2 10 ^3/uL Nucleated Red Blood Cells 0.1 % Prothrombin Time 10.5 9.3-11.8 sec Prothrombin Time INR 0.99 0.9-1.15 Activated Partial Thromboplast Time 28.7 24.5-34.5 SEC Sodium Level 140 136-145 mmol/L Potassium Level 3.7 3.5-5.1 mmol/L Chloride Level 103 98-107 mmol/L Carbon Dioxide Level 27 20-31 mmol/L Anion Gap 10 5-15 Blood Urea Nitrogen 10 9-23 mg/dL Creatinine 1.11 H 0.550-1.02 mg/dL Glomerular Filtration Rate Calc 54 >90 mL/min BUN/Creatinine Ratio 9.0 L 10.0-20.0 Serum Glucose 97 74-106 mg/dL Calcium Level 9.7 8.7-10.4 mg/dL GB USG Negative 02/04 Problems(with codes): (1) Esophageal stricture (2) Cannabinoid hyperemesis syndrome (3) Vomiting (4) Anxiety Plan/Recommendation Plan Patient would like to be admitted for ongoing care I will schedule her for EGD with possible biopsy possible dilation on 08/27/2025 IV Protonix 40 mg daily Clear liquid diet for tonight Plan discussed with: Patient, Other (Dr Jason) MIRANDA MEDLEY MD Aug 26, 2025 21:02
[2025-08-26 21:57] LABS: Alanine Aminotransferase 20.0 U/L (7-40); Albumin 4.7 g/dL (3.2-4.8); Alkaline Phosphatase 99.0 U/L (46-116); Bilirubin, Direct 0.1 mg/dL (<0.3); Bilirubin, Total 0.5 mg/dL (0.2-1.0); Total Protein 7.4 g/dL (5.7-8.2)
--- NOTE | 2025-08-26 21:58 | DVH ---
CHEST RADIOGRAPH Indication: Difficulty swallowing Technique: Single frontal view of the chest was obtained COMPARISON: None FINDINGS: Lungs and pleural spaces are clear. Cardiac silhouette and jair are within normal limits. Bones and s oft tissues demonstrate no significant abnormality. IMPRESSION: No acute disease.
[2025-08-26] MEDS: PANTOPRAZOLE 40 MG/10 ML VIAL INJ IV ONE (22:38)
[2025-08-26 22:43] VITALS: PULSE 84; RESP 18; O2SAT 95
[2025-08-27] MEDS: SODIUM CHLORIDE 0.9% 1,000 ML IV SCH (00:45)
--- NOTE | 2025-08-27 01:23 | DVHHPRES ---
History of Present Illness Resident Creating Document: OWEN COMBS RESIDENT History of Present Illness Ms. Fisher is a 69 year old female with prior medical history of TMJ disorder, hypertension, insomnia, depression, and hyperlipidemia, who presents today with chief complaint of inability to swallow. The patient states she has had this problem for a few years but in the last 7-8 months it has gone progressively worse stating that she has to cut her food very small in order to try to swallow and most of the time it feels as if it gets stuck causing her to vomit. Origina lly began with solids and has now progressed to liquids. Additionally refers epigastric pain described as burning, radiating up retrosternally 05/22, without relieving or aggravating factors. She states that she comes today because she was unable to swallow at all. She denies fever, unintended weight loss, chest pain, bloody vomit, diarrhea, bloody stools, shortness of breath, and palpitations. On evaluation in the ED, the patient was in mild distress, afebrile, and slightly hypertensive. Initial labs show CBC, chemical panel, and coagulation panel within normal range. Chest x-ray shows no acute disease. She was admitted for further workup and monitoring. Prior medical history: TMJ disorder, hypertension, insomnia, depression, and hyperlipidemia, carpel tunnel Surgical history: Jaw surgery for TMJ disorder, cervical spine surgery, and hysterectomy Allergies: Denies Social: Refers she used Vicodin for 35 years and quit approximately 4 years ago, she smoked marijuana daily for approximately 4 years and quit approximately 2 years ago, refers previous heavy alcohol use on weekends for 30 years with cessation 4 years ago, denies tobacco use. States she lives by herself and feels safe. Review of Systems Review of Systems Constitutional: Denies weight loss, fever and chills. HEENT: Denies changes in vision and hearing, refers difficulty swallowing solids and liquids with sensation of food getting stuck in her throat Respiratory: Denies shortness of breath and cough Cardiovascular: Denies chest discomfort or palpitations GI: Denies abdominal distention, abdominal pain, diarrhea : Denies dysuria and urinary frequency. Musculoskeletal: Denies symptoms Skin: Denies rash and pruritus. Neurological: denies dizziness headache vision or hearing problems Allergies: Coded Allergies: No Known Drug Allergy (Verified Allergy, Unknown, 02/05/18) Medications Current Medications Medications Dose Ordered Sig/Yandel Route Start Time Stop Time Status Last Admin Dose Admin Sodium Chloride 1,000 ml @ 75 mls/hr [id number] IV 08/26/25 23:15 Pantoprazole Sodium 40 mg DAILY IV 08/27/25 10:00 Amlodipine Besylate 10 mg DAILY PO 08/27/25 10:00 Metoprolol Succinate 200 mg DAILY PO 08/27/25 10:00 Trazodone HCl 50 mg HS PO 08/27/25 22:00 Duloxetine HCl 60 mg DAILY PO 08/27/25 10:00 Duloxetine HCl 30 mg HS PO 08/27/25 22:00 Exam Vital Signs Vital Signs Date Time Temp Pulse Resp B/P (MAP) Pulse Ox O2 Delivery O2 Flow Rate FiO2 08/26/25 22:43 84 18 95 Room Air* 0 21 08/26/25 22:30 98.4 138/84 (102) 98.4 Exam General: The patient alert and oriented in person place and time. Patient following commands HEENT: Normocephalic, atraumatic, normal reactive pupils, EOM intact, pink conjunctiva, pink moist mucous membrane Respiratory/pulmonary: Bilateral chest expansion, no pain on palpation of chest wall, clear lungs bilaterally, vesicular murmurs present in almost all lung river, no associated crackles or wheezes. Cardiovascular: Normal RRR, normal S1 and S2, no murmurs Abdomen: Obese, Abdomen nondistended, normal bowel sounds, soft, there is no pain to palpation in any of the abdominal quadrants, no palpable masses. Extremities: No deformities, there is no peripheral edema present at the lower extremities, normal pulses Skin: No rashes or pruritus, there is no sacral edema present at this time. Neurological: Intact cranial nerves with no focal neurologic deficits Labs/Xrays Labs Test 08/26/25 17:16 Range/Units White Blood Count 6.1 4.4-10.8 10^3/uL Red Blood Count 4.43 4.0-5.20 10^6/uL Hemoglobin 14.3 12.2-16.2 g/dL Hematocrit 41.4 36.0-46.0 % Mean Corpuscular Volume 93.5 80.0-100.0 fL Mean Corpuscular Hemoglobin 32.3 H 28.0-32.0 pg Mean Corpuscular Hemoglobin Concent 34.6 32.0-36.0 g/dL Red Cell Distribution Width 13.9 11.8-14.3 % Platelet Count 290 140-450 10^3/uL Mean Platelet Volume 8.9 6.9-10.8 fL Neutrophils (%) (Auto) 67.7 37.0-80.0 % Lymphocytes (%) (Auto) 22.3 10.0-50.0 % Monocytes (%) (Auto) 9.7 0.0-12.0 % Eosinophils (%) (Auto) 0.2 0.0-7.0 % Basophils (%) (Auto) 0.1 0.0-2.0 % Neutrophils # (Auto) 4.1 1.6-8.6 10 ^3/uL Lymphocytes # (Auto) 1.4 0.4-5.4 10 ^3/uL Monocytes # (Auto) 0.6 0-1.3 10 ^3/uL Eosinophils # (Auto) 0 0-0.8 10 ^3/uL Basophils # (Auto) 0 0-0.2 10 ^3/uL Nucleated Red Blood Cells 0.1 % Prothrombin Time 10.5 9.3-11.8 sec Prothrombin Time INR 0.99 0.9-1.15 Activated Partial Thromboplast Time 28.7 24.5-34.5 SEC Sodium Level 140 136-145 mmol/L Potassium Level 3.7 3.5-5.1 mmol/L Chloride Level 103 98-107 mmol/L Carbon Dioxide Level 27 20-31 mmol/L Anion Gap 10 5-15 Blood Urea Nitrogen 10 9-23 mg/dL Creatinine 1.11 H 0.550-1.02 mg/dL Glomerular Filtration Rate Calc 54 >90 mL/min BUN/Creatinine Ratio 9.0 L 10.0-20.0 Serum Glucose 97 74-106 mg/dL Calcium Level 9.7 8.7-10.4 mg/dL Total Bilirubin 0.5 0.2-1.0 mg/dL Direct Bilirubin 0.1 <0.3 mg/dL Aspartate Amino Transferase (AST) 23 13-40 U/L Alanine Aminotransferase (ALT) 20 7-40 U/L Alkaline Phosphatase 99 46-116 U/L Total Protein 7.4 5.7-8.2 g/dL Albumin 4.7 3.2-4.8 g/dL SEPSIS Sepsis Screen Date sepsis recognized/suspect: Aug 26, 2025 Time Sepsis recognized/suspect: 1428 Recent Procedure: No On Antibiotic Therapy: No Respiratory Rate >20: No Heart Rate >90: No Temp<36 C (96.8 F) or >38.3 C: No SBP <90 or MAP <65 mmHG: No New Acute Mental Status Change: No Is the patient on CPAP, BIPAP,: No Physician Orders Comprehensive Metabolic Panel (08/27/25 04:00) Prothrombin Time W/ Inr (08/27/25 04:00) Obtain Consent For: (08/27/25 09:00) Npo (Nothing By Mouth) Diet (08/27/25 Breakfast) Obtain Consent For Anesthesia (08/26/25 21:00) Chest Xray 1 View (08/26/25:) Complete Blood Count (08/27/25 04:00) Drug Screen (08/26/25:) Urinalysis (08/26/25:) Sodium Chloride 0.9% (08/26/25 23:15) Pantoprazole (Protonix) (08/27/25 10:00) Admit (08/27/25 00:09) Allergies (08/27/25 00:09) Code Status (08/27/25 00:09) Condition: Stable (08/27/25 00:09) Stat Ekg For Chest Pain (08/27/25 00:09) Notify Md Of Changes From Base (08/27/25 00:09) Emergency Dysrhythmia Protocol (08/27/25 00:09) Rhythm Strips Once Every Shift (08/27/25 00:09) Amlodipine Tablet (Norvasc Tablet) (08/27/25 10:00) Metoprolol Xl Succinate (Toprol Xl) (08/27/25 10:00) Trazodone Hcl (Desyrel) (08/27/25 22:00) Duloxetine Hcl Capsule (Cymbalta Capsule (08/27/25 10:00) Duloxetine Hcl Capsule (Cymbalta Capsule (08/27/25 22:00) Vital Signs Date Time Temp Pulse Resp B/P (MAP) Pulse Ox O2 Delivery O2 Flow Rate FiO2 08/26/25 22:43 84 18 95 Room Air* 0 21 10/14/25 22:30 98.4 83 18 138/84 (102) 95 98.4 Laboratory Tests Test 08/26/25 17:16 White Blood Count 6.1 10^3/uL (4.4-10.8) Medications Medications Dose Ordered Sig/Yandel Route Start Time Stop Time Status Last Admin Dose Admin Pantoprazole Sodium 40 mg ONCE ONCE IV 08/26/25 21:00 08/26/25 21:06 DC 08/26/25 22:38 40 MG Assessment/Plan Assessment/Plan Assessment and Plan: Failure to Thrive Possible obstruction due to Esophageal Stricture - Patient evaluated by Dr. Redmond, she will be undergoing EGD today 08/27/2025 - NPO pending procedure - NS maintenance 75 cc/hr - Protonix 40 mg IV daily MORIAH hemodynamically mediated (VMN) - Monitor in BMP - Avoid nephrotoxic drugs - On IV fluids Possible GERD - Protonix 40 mg IV daily Temporomandibular Joint Disorder - s/p op - Monitor Hypertension - Continue Amlodipine 10 mg PO daily - Continue Metoprolol succinate 200 mg PO daily Insomnia - Continue Trazodone 50 mg PO HS Depression - Continue Duloxetine 60 mg PO daily - Continue Duloxetine 30 mg PO HS Hyperlipidemia - Continue Simvastatin 20 mg History of polysubstance abuse - Counseled strongly for over 16 minutes to continue cessation Obesity, BMI 32.5 kg/m2 - I have counseled the patient on healthy life style modifications. Diet: NPO DVT prophylaxis: Patient will be going to procedure today GI prophylaxis: Protonix 40 mg IV daily Patient was instructed to not take her own medications as they would be reconciled and given to her, however, she took her evening medications of her own accord. The patient has been educated that she must refrain from taking her own medications while admitted. She states she understands and will refrain from doing so. Case discussed with Dr. Richard Goals of care discussed with patient for over 26 minutes. FULL CODE. Plan discussed with: Patient, Other (Nurses) My Orders Orders - OWEN COMBS RESIDENT Procedure Category Date Status Time Chest Xray 1 View XY 08/26/25 Resulted 21:25 Complete Blood Count LAB 08/27/25 Logged 04:00 Drug Screen LAB 08/26/25 Logged 21:25 Urinalysis LAB 08/26/25 Logged 21:25 Sodium Chloride 0.9% PHA 08/26/25 In Process 23:15 Pantoprazole PHA 08/27/25 In Process (Protonix) 10:00 Admit ADMIT 08/27/25 Transmitted 00:09 Allergies EVANGELINA 08/27/25 In Process 00:09 Code Status CODE 08/27/25 Transmitted 00:09 Condition: Stable EVANGELINA 08/27/25 In Process 00:09 Stat Ekg For Chest EVANGELINA 08/27/25 In Process Pain 00:09 Notify Of Changes EVANGELINA 08/27/25 In Process From Base 00:09 Emergency Dysrhythmia EVANGELINA 08/27/25 In Process Protocol 00:09 Rhythm Strips Once EVANGELINA 08/27/25 In Process Every Shift 00:09 Amlodipine Tablet PHA 08/27/25 In Process (Norvasc Tablet) 10:00 Metoprolol Xl PHA 08/27/25 In Process Succinate (Toprol Xl) 10:00 Trazodone Hcl PHA 08/27/25 In Process (Desyrel) 22:00 Duloxetine Hcl PHA 08/27/25 In Process Capsule (Cymbalta 10:00 Duloxetine Hcl PHA 08/27/25 In Process Capsule (Cymbalta 22:00 Date of Service: Aug 27, 2025 Billing Provider: FLY VELAZQUEZ MD Common Visit Codes: [id number] INP/OBS CARE (HIGH) Secondary Visit Codes: [id number] CARE PLAN 30 MINUTES OWEN COMBS RESIDENT Aug 27, 2025 01:23 ESTRELLA MARION RESIDENT Aug 27, 2025 04:14
[2025-08-27 06:22] LABS: Hematocrit 41.4 % (36.0-46.0); Hemoglobin 14.3 g/dL (12.2-16.2); Mean Corpuscular Hemoglobin 32.3 pg (28.0-32.0); Mean Corpuscular Volume 93.3 fL (80.0-100.0); Nucleated Red Blood Cells % 0.1 %
[2025-08-27 06:36] LABS: INR 0.98 (0.9-1.15); Partial Thromboplastin Time 30.0 SEC (24.5-34.5); Prothrombin Time 10.4 sec (9.3-11.8)
[2025-08-27 06:40] LABS: Alanine Aminotransferase 14 U/L (7-40); Albumin 4.5 g/dL (3.2-4.8); Alkaline Phosphatase 90 U/L (46-116); Anion Gap 11 (5-15); BUN/Creatinine Ratio 6.5 (10.0-20.0); Bilirubin, Total 0.7 mg/dL (0.2-1.0); Blood Urea Nitrogen 6 mg/dL (9-23); Calcium 9.9 mg/dL (8.7-10.4); Carbon Dioxide 27 mmol/L (20-31); Chloride 102 mmol/L (98-107); Glucose 99 mg/dL (74-106); Potassium 3.7 mmol/L (3.5-5.1); Sodium 140 mmol/L (136-145); Total Protein 7.3 g/dL (5.7-8.2)
[2025-08-27 10:30] VITALS: BP 122/72; PULSE 73; RESP 18; TEMP 97.8; O2SAT 94
[2025-08-27] MEDS: METOPROLOL SUCCINATE XL 50 MG TAB PO SCH (11:06)
[2025-08-27] MEDS: PANTOPRAZOLE 40 MG/10 ML VIAL INJ IV SCH ×2 (11:22→21:29)
[2025-08-27] MEDS ORDERED: NALOXONE HCL 0.4 MG/ML VIAL ONE (12:00)
[2025-08-27] MEDS ORDERED: SODIUM CHLORIDE LOCK 10 ML ONE (12:00)
--- NOTE | 2025-08-27 13:42 | DVHPNRES ---
Progress Note Date Seen: Aug 27, 2025 Resident Creating Document: CHAPARRO VELASQUEZ RESIDENT Medical Necessity Reason Pt with a Central, PICC or Fol: No (RN) Subjective Review of Systems Patient is a 69-year-old female with past medical history of TMJ disorder, hypertension, insomnia, depression, and hyperlipidemia, presented to [facility] ED with complaint of inability to swallow. The patient states she has had this problem for a few years but in the last 7-8 months it has gone progressively worse stating that she has to cut her food very small in order to try to swallow and most of the time it feels as if it gets stuck causing her to vomit. Originally began with solids and has now progressed to liquids. Additionally refers epigastric pain described as burning, radiating up retrosternally 7/10, without relieving or aggravating factors. She states that she comes today because she was unable to swallow at all. She denies fever, unintended weight loss, chest pain, bloody vomit, diarrhea, bloody stools, shortness of breath, and palpitations. Initial labs show CBC, chemical panel, and coagulation panel within normal range. Chest x-ray shows no acute disease. She was admitted for further workup and monitoring. Past medical history: TMJ disorder, hypertension, insomnia, depression, and hyperlipidemia, carpel tunnel Past surgical history: Jaw surgery for TMJ disorder, cervical spine surgery, and hysterectomy Social & Personal history: Refers she used Vicodin for 35 years and quit approximately 4 years ago, she smoked marijuana daily for approximately 4 years and quit approximately 2 years ago, refers previous heavy alcohol use on weekends for 30 years with cessation 4 years ago, denies tobacco use. States she lives by herself and feels safe. Allergies: Denies Patient seen and examined at bedside. Patient is alert and oriented to time, place person and responding to all questions. Eyes: No Pain, No Vision change, No Conjunctivae inflammation, No Eyelid inflammation, No Other, No Redness ENT: Difficulty swallowing solids and liquids with sensation of food getting stuck in her throat. No Ear pain, No Ear discharge, No Nose pain, No Nose discharge, No Nose congestion, No Mouth pain, No Mouth swelling, No Throat pain, No Throat swelling, No Other Cardiovascular: Chest Pain, No Palpitations, No Orthopnea, No Paroxysmal No Dyspnea, No Edema, No Lt Headedness, No Other Respiratory: No Cough, No Dry, No Shortness of breath, No SOB with exertion, No Wheezing, No Hemoptysis, No Pleuritic Pain, No Sputum, No Other Gastrointestinal: No Nausea, No Vomiting, No Abdominal Pain, No Diarrhea, No Constipation, No Melena, No Hematochezia, No Other Genitourinary: No Dysuria, No Frequency, No Incontinence, No Hematuria, No Retention, No Other Musculoskeletal: No other, No neck pain, No shoulder pain, No arm pain, No back pain, No hand pain, No leg pain, No foot pain Skin: No Rash, No Lesions, No Jaundice, No Bruising, No Other Objective vital signs Vital Sign Date Time Temp Pulse Resp B/P (MAP) Pulse Ox O2 Delivery O2 Flow Rate FiO2 08/27/25 11:06 94 122/72 08/27/25 10:30 97.8 18 94 97.8 08/26/25 22:43 Room Air* 0 21 medications Current Medications Medications Dose Ordered Sig/Yandel Route Start Time Stop Time Status Last Admin Dose Admin Sodium Chloride 1,000 ml @ 75 mls/hr [id number] IV 08/26/25 23:15 08/27/25 11:22 75 MLS/HR Pantoprazole Sodium 40 mg DAILY IV 08/27/25 10:00 08/27/25 11:22 40 MG Amlodipine Besylate 10 mg DAILY PO 08/27/25 10:00 08/27/25 11:05 10 MG Metoprolol Succinate 200 mg DAILY PO 08/27/25 10:00 08/27/25 11:06 200 MG Trazodone HCl 50 mg HS PO 08/27/25 22:00 Duloxetine HCl 60 mg DAILY PO 08/27/25 10:00 08/27/25 11:03 60 MG Duloxetine HCl 30 mg HS PO 08/27/25 22:00 Atorvastatin Calcium 10 mg HS PO 08/27/25 22:00 Examination General: The patient alert and oriented in person place and time. Patient following commands HEENT: Normocephalic, atraumatic, normal reactive pupils, EOM intact, pink conjunctiva, pink moist mucous membrane Respiratory/pulmonary: Bilateral chest expansion, no pain on palpation of chest wall, clear lungs bilaterally, vesicular murmurs present in almost all lung river, no associated crackles or wheezes. Cardiovascular: Normal RRR, normal S1 and S2, no murmurs Abdomen: Obese, Abdomen nondistended, normal bowel sounds, soft, there is no pain to palpation in any of the abdominal quadrants, no palpable masses. Extremities: No deformities, there is no peripheral edema present at the lower extremities, normal pulses Skin: No rashes or pruritus, there is no sacral edema present at this time. Neurological: Intact cranial nerves with no focal neurologic deficits laboratory and microbiology Laboratory Tests 08/27/25 05:35 Test 08/27/25 05:35 Range/Units Serum Glucose 99 74-106 mg/dL Labs and/or images reviewed: Labs reviewed by me, Image(s) reviewed by me Problem List/Assessment/Plan Problem List/Assessment/Plan Failure to Thrive Possible obstruction due to erosive esophagitis with esophageal ulcers Sliding-type hiatal hernia - Upper Endoscopy with biopsy (08/27/25) 4-5 cm sliding-type hiatal hernia with grade B linear erosive esophagitis with esophageal ulcers extending into the distal 5 cm of the esophagus from which biopsies were obtained. Mild spasticity of the upper esophageal sphincter area with slight angulation. Minimal gastroduodenitis otherwise normal examination up to the 2nd and 3rd part of the duodenum - Biopsy result pending - Start full liquid diet advance as tolerated - NS maintenance 75 cc/hr - Protonix 40 mg IV daily - Carafate suspension 1 g p.o. 4 times a day MORIAH hemodynamically mediated (VMN) - Monitor in BMP - Avoid nephrotoxic drugs - On IV fluids Possible GERD - Protonix 40 mg IV daily Temporomandibular Joint Disorder - s/p op - Monitor Hypertension - Continue Amlodipine 10 mg PO daily - Continue Metoprolol succinate 200 mg PO daily Insomnia - Continue Trazodone 50 mg PO HS Depression - Continue Duloxetine 60 mg PO daily - Continue Duloxetine 30 mg PO HS Hyperlipidemia - Continue Simvastatin 20 mg History of polysubstance abuse - Counseled strongly for over 16 minutes to continue cessation Obesity, BMI 32.5 kg/m2 - I have counseled the patient on healthy life style modifications. Diet: Full liquid DVT prophylaxis: Patient will be going to procedure today GI prophylaxis: Protonix 40 mg IV daily Goals of care: Full code, discussed for >26 minutes on 08/27/25 Plan discussed with patient Plan discussed with Dr. Lynn Plan discussed with: Patient, Other (RN) Date of Service: Aug 27, 2025 Billing Provider: KIRAN LYNN MD Common Visit Codes: [id number] INP/OBS CARE(HIGH) RONISAACPORFIRIO RESIDENT Aug 27, 2025 13:42 KIRAN LYNN MD Aug 28, 2025 23:06
[2025-08-27] MEDS: fentaNYL CITRATE 100 MCG/2 ML VL ONE (13:48)
[2025-08-27] MEDS: diphenhdrAMINE HCL 50 MG/1 ML VL ONE (13:48)
[2025-08-27] MEDS: MIDAZOLAM HCL 5 MG/ML-1ML VIAL ONE (13:48)
[2025-08-27] MEDS: LIDOCAINE VISCOUS 2% 15ML UD ONE (13:48)
[2025-08-27 14:06] VITALS: PULSE 80; RESP 12
--- NOTE | 2025-08-27 14:32 | DVHOP2 ---
Operative Report DATE OF OPERATION: 08/27/25 PROCEDURE: Upper Endoscopy with biopsy. PREOPERATIVE INDICATION: The patient is a 69 -year-old female undergoing endoscopy for GERD dyspepsia and dysphagia POSTOPERATIVE DIAGNOSES: 1. 4-5 cm sliding-type hiatal hernia with grade B linear erosive esophagitis with esophageal ulcers extending into the distal 5 cm of the esophagus from which biopsies were obtained 2. Mild spasticity of the upper esophageal sphincter area with slight angulation 3. Minimal gastroduodenitis otherwise normal examination up to the 2nd and 3rd part of the duodenum PROCEDURE PERFORMED BY: Miranda Redmond GI NURSE: Giselle SCOPE: Olympus videoendoscope. ASA CLASS: 2. PREOPERATIVE MEDICATIONS: Versed 3 mg, Fentanyl 100 mcg, Benadryl 50 mg I administered moderate sedation throughout this _10_ minutes procedure. An independent trained observer pushed medications at my direction, and monitored the patient's level of consciousness and physiological status throughout. PROCEDURE IN DETAIL: After obtaining an informed consent, the patient was placed on left lateral decubitus position. The patient was then sedated with the above medications. A bite block was placed between her teeth. The endoscope was then passed through the oropharynx, into the esophagus, and through the stomach and pylorus up to the second and third part of the duodenum. The endoscope was then withdrawn. The 2nd and 3rd part of the duodenum and the duodenal bulb were normal. Duodenal biopsies were obtained The pre-pyloric area and antrum showed minimal gastritis. Gastric biopsies were obtained. On retroflexion the fundus and cardia were normal. The endoscope was then withdrawn into distal esophagus where she had a 4-5 cm sliding-type hiatal hernia Had grade B linear erosive esophagitis with distal esophageal ulcers extending into the distal 5-7 cm of the esophagus from which biopsies were obtained The patient tolerated the procedure well without difficulty. COMPLICATIONS : None SPECIMENS: Duodenal biopsies Gastric biopsies Esophageal biopsies DISPOSITION: Transfer back to the floor Stable PLAN: 1. Await for biopsy result 2. Will place pt on Protonix 40 mg bid p.o. 3. Carafate suspension 1 g p.o. 4 times a day 4. Start full liquid diet advance as tolerated 5. Outpatient follow up with me in 4-6 weeks to review results and discuss further management MIRANDA REDMOND MD Aug 27, 2025 14:32
[2025-08-27 16:35] VITALS: BP 131/84; PULSE 83; RESP 19; TEMP 98.2; O2SAT 99
[2025-08-27 17:00] VITALS: BP 131/84; PULSE 76; RESP 17; TEMP 98.2; O2SAT 99
[2025-08-27 21:00] VITALS: BP 123/72; PULSE 71; RESP 14; TEMP 98.1; O2SAT 94
[2025-08-27] MEDS: SUCRALFATE 1 GM/10 ML ORAL SUSP PO SCH (21:28)
[2025-08-27] MEDS ORDERED: ATORVASTATIN 20 MG TAB PO SCH (22:00)
[2025-08-28] MEDS ORDERED: MELATONIN 5 MG TAB PO ONE (00:45)
[2025-08-28 01:00] VITALS: BP 124/83; PULSE 71; RESP 12; TEMP 96.9; O2SAT 96
[2025-08-28 05:00] VITALS: BP 110/63; PULSE 76; RESP 16; TEMP 97.5; O2SAT 97
[2025-08-28 06:43] LABS: Hematocrit 37.8 % (36.0-46.0); Hemoglobin 13.2 g/dL (12.2-16.2); Mean Corpuscular Hemoglobin 32.6 pg (28.0-32.0); Mean Corpuscular Volume 93.6 fL (80.0-100.0); Nucleated Red Blood Cells % 0.1 %
[2025-08-28 07:01] LABS: Alanine Aminotransferase 13 U/L (7-40); Albumin 3.9 g/dL (3.2-4.8); Alkaline Phosphatase 78 U/L (46-116); Anion Gap 9 (5-15); BUN/Creatinine Ratio 7.4 (10.0-20.0); Calcium 9.2 mg/dL (8.7-10.4); Carbon Dioxide 28 mmol/L (20-31); Chloride 105 mmol/L (98-107); Glucose 95 mg/dL (74-106); Potassium 4.0 mmol/L (3.5-5.1); Sodium 142 mmol/L (136-145); Total Protein 6.4 g/dL (5.7-8.2)
[2025-08-28 07:02] LABS: Bilirubin, Total 0.6 mg/dL (0.2-1.0)
[2025-08-28 07:05] LABS: Blood Urea Nitrogen 7 mg/dL (9-23)
[2025-08-28 09:00] VITALS: BP 117/71; PULSE 80; RESP 18; TEMP 97.8; O2SAT 97
[2025-08-28] MEDS ORDERED: PANT40TA2 PO (11:52)
[2025-08-28] MEDS ORDERED: SUCR1SUS5 PO (11:52)
[2025-08-28 12:30] VITALS: BP 121/81; PULSE 79; RESP 18; TEMP 97.9; O2SAT 96
[2025-08-28 12:52] VITALS: BP 121/81; PULSE 79; RESP 18; TEMP 97.9; O2SAT 96
--- NOTE | 2025-08-28 15:27 | DVHDSRES ---
Discharge Summary Date of Admission Resident Creating Document: CHAPARRO VELASQUEZ RESIDENT Aug 27, 2025 at 00:09 Date of Discharge: Aug 28, 2025 Admitting Diagnosis progressive dysphagia Labs/Diagnostic Data: Laboratory Results Test 08/28/25 05:52 08/27/25 05:35 08/26/25 17:16 White Blood Count 3.5 10^3/uL (4.4-10.8) Red Blood Count 4.04 10^6/uL (4.0-5.20) Hemoglobin 13.2 g/dL (12.2-16.2) Hematocrit 37.8 % (36.0-46.0) Mean Corpuscular Volume 93.6 fL (80.0-100.0) Mean Corpuscular Hemoglobin 32.6 pg (28.0-32.0) Mean Corpuscular Hemoglobin Concent 34.9 g/dL (32.0-36.0) Red Cell Distribution Width 13.4 % (11.8-14.3) Platelet Count 236 10^3/uL (140-450) Mean Platelet Volume 9.2 fL (6.9-10.8) Neutrophils (%) (Auto) 55.5 % (37.0-80.0) Lymphocytes (%) (Auto) 31.6 % (10.0-50.0) Monocytes (%) (Auto) 12.6 % (0.0-12.0) Eosinophils (%) (Auto) 0.1 % (0.0-7.0) Basophils (%) (Auto) 0.2 % (0.0-2.0) Neutrophils # (Auto) 2.0 10 ^3/uL (1.6-8.6) Lymphocytes # (Auto) 1.1 10 ^3/uL (0.4-5.4) Monocytes # (Auto) 0.4 10 ^3/uL (0-1.3) Eosinophils # (Auto) 0 10 ^3/uL (0-0.8) Basophils # (Auto) 0 10 ^3/uL (0-0.2) Nucleated Red Blood Cells 0.1 % Sodium Level 142 mmol/L (136-145) Potassium Level 4.0 mmol/L (3.5-5.1) Chloride Level 105 mmol/L (98-107) Carbon Dioxide Level 28 mmol/L (20-31) Anion Gap 9 (5-15) Blood Urea Nitrogen 7 mg/dL (9-23) Creatinine 0.94 mg/dL (0.550-1.02) Glomerular Filtration Rate Calc 66 mL/min (>90) BUN/Creatinine Ratio 7.4 (10.0-20.0) Serum Glucose 95 mg/dL (74-106) Calcium Level 9.2 mg/dL (8.7-10.4) Total Bilirubin 0.6 mg/dL (0.2-1.0) Aspartate Amino Transferase (AST) 21 U/L (13-40) Alanine Aminotransferase (ALT) 13 U/L (7-40) Alkaline Phosphatase 78 U/L (46-116) Total Protein 6.4 g/dL (5.7-8.2) Albumin 3.9 g/dL (3.2-4.8) Prothrombin Time 10.4 sec (9.3-11.8) Prothrombin Time INR 0.98 (0.9-1.15) Activated Partial Thromboplast Time 30.0 SEC (24.5-34.5) Direct Bilirubin 0.1 mg/dL (<0.3) Other Laboratory Tests 08/28/25 05:52 Brief Hx & Hospital Course: The patient is a 69-year-old female with a past medical history of temporomandibular joint (TMJ) disorder, hypertension, insomnia, depression, hyperlipidemia, and carpal tunnel syndrome, who presented to [facility] Emergency Department with progressive dysphagia. She reported difficulty swallowing for several years, which worsened over the past 78 months, initially affecting solids and now including liquids. She described a sensation of food getting stuck, often leading to vomiting, and associated epigastric burning pain radiating retrosternally, rated 7/10. She denied fever, weight loss, chest pain, hematemesis, diarrhea, melena, shortness of breath, and palpitations. Initial evaluation revealed normal CBC, chemistry, and coagulation panels. Chest X-ray showed no acute disease. She was admitted for further workup and monitoring. Physical examination was unremarkable, with the patient alert, oriented, and without focal deficits. Upper endoscopy performed on 08/27/25 revealed a 45 cm sliding-type hiatal hernia, grade B erosive esophagitis, and distal esophageal ulcers. Biopsies were obtained from the esophagus, stomach, and duodenum; results are pending. She was started on a full liquid diet, IV fluids, Protonix 40 mg IV daily, and Carafate suspension 1 g PO four times daily. Her acute kidney injury was deemed hemodynamically mediated and is being monitored with BMP and supportive care. Her chronic conditions, including hypertension, insomnia, depression, and hyperlipidemia, were managed with home medications. She was counseled on lifestyle modifications for obesity (BMI 32.5) and strongly advised to maintain cessation from prior polysubstance use. The patient tolerated the procedure well and was transferred back to the floor in stable condition. She will follow up with her primary care provider in one week and with gastroenterology in 24 weeks to review biopsy results and discuss further management. Examination General: The patient alert and oriented in person place and time. Patient following commands HEENT: Normocephalic, atraumatic, normal reactive pupils, EOM intact, pink conjunctiva, pink moist mucous membrane Respiratory/pulmonary: Bilateral chest expansion, no pain on palpation of chest wall, clear lungs bilaterally, vesicular murmurs present in almost all lung river, no associated crackles or wheezes. Cardiovascular: Normal RRR, normal S1 and S2, no murmurs Abdomen: Obese, Abdomen nondistended, normal bowel sounds, soft, there is no pain to palpation in any of the abdominal quadrants, no palpable masses. Extremities: No deformities, there is no peripheral edema present at the lower extremities, normal pulses Skin: No rashes or pruritus, there is no sacral edema present at this time. Neurological: Intact cranial nerves with no focal neurologic deficits Operations or Procedures PATIENT: JUSTIN NAZARIO ACCT: [id number] UNIT: [id number] : 1955 LOC: ER ROOM / BED: / AGE / SEX: 69 / F ADM STATUS: REG ER SERVICE 24 ORDERING PHYSICIAN: OWEN COMBS RESIDENT PROCEDURE(s): CXR1 - CHEST XRAY 1 VIEW REASON: Difficulty swallowing ORDER NUMBER(s): [id number], ACCESSION NUMBER(s): [id number] CHEST RADIOGRAPH Indication: Difficulty swallowing Technique: Single frontal view of the chest was obtained COMPARISON: None FINDINGS: Lungs and pleural spaces are clear. Cardiac silhouette and jair are within normal limits. Bones and soft tissues demonstrate no significant abnormality. IMPRESSION: No acute disease. ATED BY: SEBAS CORTÉS MD DICTATED DATE/TIME: 08/26/252154 SIGNED BY: SEBAS CORTÉS MD SIGNED DATE/TIME: 08/26/252154 Operative Report DATE OF OPERATION: 08/27/25 PROCEDURE: Upper Endoscopy with biopsy. PREOPERATIVE INDICATION: The patient is a 69 -year-old female undergoing endoscopy for GERD dyspepsia and dysphagia POSTOPERATIVE DIAGNOSES: 1. 4-5 cm sliding-type hiatal hernia with grade B linear erosive esophagitis with esophageal ulcers extending into the distal 5 cm of the esophagus from which biopsies were obtained 2. Mild spasticity of the upper esophageal sphincter area with slight angulation 3. Minimal gastroduodenitis otherwise normal examination up to the 2nd and 3rd part of the duodenum PROCEDURE PERFORMED BY: Miranda Medley GI NURSE: Giselle SCOPE: Olympus videoendoscope. ASA CLASS: 2. PREOPERATIVE MEDICATIONS: Versed 3 mg, Fentanyl 100 mcg, Benadryl 50 mg I administered moderate sedation throughout this _10_ minutes procedure. An independent trained observer pushed medications at my direction, and monitored the patient's level of consciousness and physiological status throughout. PROCEDURE IN DETAIL: After obtaining an informed consent, the patient was placed on left lateral decubitus position. The patient was then sedated with the above medications. A bite block was placed between her teeth. The endoscope was then passed through the oropharynx, into the esophagus, and through the stomach and pylorus up to the second and third part of the duodenum. The endoscope was then withdrawn. The 2nd and 3rd part of the duodenum and the duodenal bulb were normal. Duodenal biopsies were obtained The pre-pyloric area and antrum showed minimal gastritis. Gastric biopsies were obtained. On retroflexion the fundus and cardia were normal. The endoscope was then withdrawn into distal esophagus where she had a 4-5 cm sliding-type hiatal hernia Had grade B linear erosive esophagitis with distal esophageal ulcers extending into the distal 5-7 cm of the esophagus from which biopsies were obtained The patient tolerated the procedure well without difficulty. COMPLICATIONS : None SPECIMENS: Duodenal biopsies Gastric biopsies Esophageal biopsies DISPOSITION: Transfer back to the floor Stable PLAN: 1. Await for biopsy result 2. Will place pt on Protonix 40 mg bid p.o. 3. Carafate suspension 1 g p.o. 4 times a day 4. Start full liquid diet advance as tolerated 5. Outpatient follow up with me in 4-6 weeks to review results and discuss further management MIRANDA MEDLEY MD Aug 27, 2025 14:32 Condition at Discharge: Stable (RN) Final Diagnosis/Problems List -dysphagia likely d/t esophagitis -Hiatal hernia with grade B linear erosive esophagitis with esophageal ulcers -esophageal sphincter spasm -Minimal gastroduodenitis Discharge Disposition: Home Discharge Instruct/Medications Diet: See Comment Diet comment: Full liquid diet for 4-5 days and then advance as tolerated Avoid coffee, spicy foods Activity: No Restrictions, As Tolerated Follow Up/Referral: Follow up with the PCP in one week Follow up to be scheduled with GI in the outpatient clinic in 2-4 weeks for Biopsy result Medications: protonix 40mg twice daily carafate 10ml four times a day continue on home medication Avoid NSAIDS Scheduled Ondansetron (Zofran), 4 MG PO QID Pantoprazole Sodium Sesquihydr (Protonix), 40 MG PO BID Sucralfate (Carafate), 10 ML PO QID Scheduled PRN Ondansetron Odt 4MG Tab (Zofran Po), 4 MG PO Q8HP PRN Phenazopyridine HCl (Phenazopyridine Hydrochol), 200 MG PO TID PRN Discontinued Medications Cephalexin Monohydrate (Cephalexin), 1 TAB PO QID Pantoprazole Sodium Sesquihydr (Protonix), 40 MG PO DAILY Discharge Statement: "Patient was advised to return to the ER or call 911 if any headaches, dizziness, shortness of breath, chest pain, abdominal pain, bleeding, fevers, or worsening of medical condition. Patient was counseled about treatment plan, medications, possible side effects, patientverbalized understanding. All questions were answered to the best of my ability. This discharge took greater then 30 minutes in planning, reviewing documentation, counseling the patient, and discussing with other team members." ASSESSMENT ASSESSMENT Assessment -dysphagia likely d/t esophagitis -Hiatal hernia with grade B linear erosive esophagitis with esophageal ulcers -esophageal sphincter spasm -Minimal gastroduodenitis Date of Service: Aug 28, 2025 Billing Provider: KIRAN LYNN MD Common Visit Codes: 12131-JSZ/OBS DISCH DAY >30min CHAPARRO VELASQUEZ RESIDENT Aug 28, 2025 15:27 KIRAN LYNN MD Aug 28, 2025 23:06
== END 2025-08-28 14:08 | disposition home or self-care (01) | DRG 391 ==
LOC: ER 14:20 → OVERFLOW 08-27 00:09 → EAST 08-27 15:24
PROVIDERS: ADMIT Internal Medicine; ATTEND Internal Medicine
PROC: 0DB68ZX Excision of Stomach, Via Natural or Artificial Opening Endoscopic, Diagnostic (ICD-10-PCS; 2025-08-27)
PROC: 0DB38ZX Excision of Lower Esophagus, Via Natural or Artificial Opening Endoscopic, Diagnostic (ICD-10-PCS; 2025-08-27)
PROC: 0DB98ZX Excision of Duodenum, Via Natural or Artificial Opening Endoscopic, Diagnostic (ICD-10-PCS; principal; 2025-08-27 13:43)
DX: K20.90 Esophagitis, unspecified without bleeding (principal); N17.0 Acute kidney failure with tubular necrosis; K22.10 Ulcer of esophagus without bleeding; K29.90 Gastroduodenitis, unspecified, without bleeding; K22.2 Esophageal obstruction; K44.9 Diaphragmatic hernia without obstruction or gangrene; K21.9 Gastro-esophageal reflux disease without esophagitis; R62.7 Adult failure to thrive; E78.5 Hyperlipidemia, unspecified; G47.00 Insomnia, unspecified; T17.228A Food in pharynx causing other injury, initial encounter; F32.A Depression, unspecified; I10 Essential (primary) hypertension; E66.9 Obesity, unspecified; F41.9 Anxiety disorder, unspecified; K22.4 Dyskinesia of esophagus; Z79.2 Long term (current) use of antibiotics; Z90.710 Acquired absence of both cervix and uterus; Z68.32 Body mass index [BMI] 32.0-32.9, adult; Z79.899 Other long term (current) drug therapy; W44.F3XA Food entering into or through a natural orifice, initial encounter; Y93.89 Activity, other specified; Y92.89 Other specified places as the place of occurrence of the external cause; Y99.8 Other external cause status
CPT/HCPCS: 36415; 43239; 71045; 80048; 80053; 80076; 85025; 85610; 85730; 86850; 86900; 86901; 96374; G0378; J2250; J2470